=== PATIENT | male | born 1955 | race Caucasian/White ===

== ENCOUNTER 2018-12-21 05:55 | Day surgery (SDC) | payer BC ==
[2018-12-16 11:31] VITALS: BMI 23.9
[2018-12-21] MEDS ORDERED: POVIDONE-IODINE 5% OPHTHALMIC PREP 30 ML SOLUTION ONE (07:10)
[2018-12-21] MEDS ORDERED: ERYTHROMYCIN 0.5% OPHTHALMIC OINTMENT 3.5 GM TUBE ONE (07:10)
[2018-12-21] MEDS ORDERED: TETRACAINE 0.5% OPHTH SOLN 2 ML BOTTLE ONE (07:10)
[2018-12-21] MEDS ORDERED: LIDOCAINE 1%/EPI 1:100000 (20 ML MULTI DOSE VIAL) ONE (07:11)
[2018-12-21] MEDS ORDERED: LIDOCAINE 1% P/F 10 MG/ML VIAL ONE (07:11)
[2018-12-21] MEDS ORDERED: BUPIVACAINE HCL/PF 0.5% (5MG/ML) 10 ML VIAL ONE (07:11)
[2018-12-21] MEDS ORDERED: PROPOFOL 20 ML ONE (07:52)
[2018-12-21] MEDS ORDERED: MIDAZOLAM HCL 2 MG/2 ML SINGLE DOSE VIAL ONE (07:52)
[2018-12-21] MEDS ORDERED: DEXAMETHASONE SOD PHOSPHATE 4 MG/1 ML VIAL ONE (07:55)
[2018-12-21] MEDS ORDERED: ONDANSETRON 4 MG/2 ML VIAL ONE (07:55)
[2018-12-21] MEDS ORDERED: ceFAZolin SODIUM 1 GM VIAL ONE (07:59)
[2018-12-21 09:00] VITALS: TEMP 98.8
[2018-12-21 09:25] VITALS: BP 126/74; PULSE 62
--- NOTE | 2018-12-21 10:00 | OP ---
DATE OF OPERATION: 12/21/2018 PREOPERATIVE DIAGNOSIS: Basal cell carcinoma, right lower lid. POSTOPERATIVE DIAGNOSIS: Basal cell carcinoma, right lower lid. PROCEDURE: 1. Debridement and tailoring of defect, right lower lid. 2. Myocutaneous flap from right lateral cheek to right lower lid. SURGEON: Jenniffer Leone MD ANESTHESIA: Local with sedation. COMPLICATONS: None. ESTIMATED BLOOD LOSS: 2 mL. OPERATIVE REPORT: Patient was brought to the operating room, placed on the operating room table. Vital signs monitored by Anesthesia. Patient was placed on the operating room table. Tetracaine was placed in both eyes. A time-out was performed. Then, a proposal for closure of the defect in the right lower lid was marked as a rhomboid rotation flap from the lateral lower lid and cheek to the right lower lid. After time-out and intravenous sedation, a 50/50 mixture of 2% Xylocaine with 1:100,000 epinephrine, 0.5% Marcaine was then injected subcutaneously in the right lower lid and right cheek for a total of 5 mL. Massage was applied for hemostasis. Patient was prepped and draped in the usual sterile fashion exposing both eyes. The wound was then debrided and tailored to create a nice regular rhomboid defect, and then, the myocutaneous flap was incised with a 15 blade and then elevated with the Alexx scissors. Dissection was carried out in the submuscular plane laterally into the cheek to allow mobilization of the donor site. The donor site was closed with buried 3-0 chromic sutures, and standing cutaneous deformity was excised at the inferior end of the donor site. The flap was rotated into the defect in the lower lid without any tension vertically on the eyelid. It was sutured into position at cardinal points with subcuticular 6-0 chromic, and that was closed with running and interrupted 6-0 plain suture with plastic technique again excising a standing cutaneous deformity at the point of the rotation flap where it met the eyelid, and the wound was closed with interrupted and running 6-0 plain with plastic technique with excellent result and no distortion of the eyelid. Erythromycin ointment was placed on the sutures, and the patient was taken to the recovery room in stable condition. JENNIFFER LEONE M.D. GABI/[id number]
[2018-12-21] MEDS ORDERED: ONDANSETRON 4 MG/2 ML VIAL IVPUSH PRN (12:02)
[2018-12-21] MEDS ORDERED: ACETAMINOPHEN 325 MG TABLET (FP) PO PRN (12:02)
[2018-12-21] MEDS ORDERED: LACTATED RINGERS SOLUTION 1,000 ML IV SCH (12:15)
== END 2018-12-21 09:31 | disposition home or self-care (01) ==
LOC: FASU 05:55 → EDBD 07:30 → FASU 09:31
PROVIDERS: ATTEND Ophthalmology
PROC: 0KX00ZZ Transfer Head Muscle, Open Approach (ICD-10-PCS; 2018-12-21)
PROC: 08Q Eye, Repair (ICD-10-PCS; principal; 2018-12-21 08:08)
DX: C44.1122 Basal cell carcinoma of skin of right lower eyelid, including canthus (principal); H02.89 Other specified disorders of eyelid